=== PATIENT | female | born 1935 | race Hispanic/Latino ===

== ENCOUNTER 2019-08-12 17:06 | Emergency (ER) | payer MEDICARE ==
[~2019-08-12] VITALS: Ht 157.5 cm; Wt 69.9 kg
[~2019-08-12 17:06] MED LIST: ACETAMINOPHEN500 MG PO; ALBUTEROL0.63 MG/3; APRESOLINE50 MG PO; CELEXA10 MG PO; COLACE100 MG PO; FOSAMAX70 MG PO; FUROSEMIDE40 MG PO; GABAPENTIN300 MG PO; GLYBURIDE PO; GUAIFENESI100 MG/5 M PO; HUMALOG KWIK PEN; KCL PO; KEFLEX500 MG PO; LANTUS 3ML100 UNITS/ SC; LEVEMIR100 UNIT/1 SQ; LISINOPRIL20 MG PO; LOSARTAN-HCTZ1 EACH PO; LOVENOX40 MG/0.4 SQ; MELOXICAM7.5 MG PO; METFORMIN PO; METHYLDOPA250 MG PO; METOPROLOL TART25 MG PO; MINOXIDIL10 MG PO; MIRALAX17 GM PO; MOTRIN50 MG/1.25 PO; MULTIVITAMIN W1 EACH PO; NEXIUM40 MG; NIFEDIPINE ER30 M1 PO; PANTOPRAZOLE SO40 MG PO; PROAIR HFA INH8.5 GM; SIMVASTATIN10 MG PO; SINGULAIR10 MG PO; SPIRONOLACTONE25 MG PO; TRIAMCINOLONE A15 G1; Z FELODIPINE PO; Z.0.CARAFATE1 GM PO; Z.0.COREG3.125 MG PO; Z.0.GLIPIZIDE10 MG PO; Z.0.HUMALOG100 UNIT/; Z.0.LANTUS100 UNIT/1 SC; Z.0.LASIX40 MG PO; Z.0.LASIX80 MG PO; Z.0.LEVAQUIN500 MG PO; Z.0.LEVOTHYROXINE50 PO; Z.0.LOSARTAN POTASS5 PO; Z.0.LOVASTATIN10 MG PO; Z.0.NAPROXEN500 M1; Z.0.OMEPRAZOLE40 MG PO; Z.0.PLAVIX75 MG PO; Z.0.POTASSIUM CHLO20 PO; Z.0.PREDNISONE20 MG; Z.0.PREDNISONE20 MG PO; Z.0.QUINAPRIL HCL40 PO; Z.0.ULTRAM 50MG50 MG PO; Z.0.WARFARIN SODIUM5 PO; Z.0.ZEGERID 40 MG1 E PO; Z.1.NITROFURANTOIN10 PO; ZOFRAN ODT4 MG; ZYRTEC10 MG PO; [UNRECOGNIZED DRUG - OTHER] PO; nitropaste TOP; nystatin cream TOP
--- OUTSIDE RECORDS SUMMARY | 2019-08-12 17:10 | XMS REPORT ---
Author Author [facility] Address Unknown Phone Unavailable Care Team Providers Care Rope Rider Name Role Phone Unavailable Unavailable Payers Payer Name Policy Type Policy Number Effective Date Expiration Date Problems This patient has no known problems. Allergies, Adverse Reactions, Alerts Allergy Name Allergy Type Status Severity Reaction(s) Onset Date Inactive Date Treating Clinician Comments Penicillins DA Active SV 2019-04-01 00:00:00 iodine DA Active SV 2019-04-01 00:00:00 codeine DA Active U 2019-04-01 00:00:00 Penicillins DA Active SV 2017-07-27 00:00:00 iodine DA Active SV 2017-07-27 00:00:00 codeine DA Active U 2012-12-21 00:00:00 Medications This patient has no known medications. Encounters Start Date/Time End Date/Time Encounter Type Admission Type Attending [facility] Care Department Encounter ID 2019-02-28 12:27:00 2019-02-28 12:27:00 Outpatient [facility] [id number] Results Test Description Test Time Test Comments Text Results Atomic Results Result Comments ELECTROLYTES PROFILE 2019-04-01 15:24:00 SODIUM (test code=NA) 144 mmol/L 136-145 POTASSIUM (test code=K) 4.5 mmol/L 3.5-5.1 CHLORIDE (test code=CL) 115.0 mmol/L 98-107 CARBON DIOXIDE (test code=CO2) 18.0 mmol/L 21-32 ANION GAP (test code=GAP) 15.5 10-20 CBC W/AUTO [id number] 14:48:00* Test Item Value Reference Range Comments WHITE BLOOD CELL (test code=WBC) 7.3 K/mm3 4.5-12.5 RED BLOOD CELL (test code=RBC) 3.63 mill/mm3 3.7-5.2 HEMOGLOBIN (test code=HGB) 11.5 gram/dL 11.5-15.5 HEMATOCRIT (test code=HCT) 34.8 % 36.0-46.0 MEAN CELL VOLUME (test code=MCV) 95.9 fL 80-98 MEAN CELL HGB (test code=MCH) 31.7 picogram 27.0-33.0 MEAN CELL HGB CONCETRATION (test code=MCHC) 33.0 gram/dL 33.0-36.0 RED CELL DISTRIBUTION WIDTH (test code=RDW) 16.2 % 11.6-16.2 RED CELL DISTRIBUTION WIDTH SD (test code=RDW-SD) 57.6 fL 37.0-51.0 PLATELET COUNT (test code=PLT) 142 K/mm3 150-450 MEAN PLATELET VOLUME (test code=MPV) 10.0 fL 6.7-11.0 NEUTROPHIL % (test code=NT%) 70.8 % 39.0-69.0 IMMATURE GRANULOCYTE % (test code=IG%) 0.3 % 0.0-5.0 LYMPHOCYTE % (test code=LY%) 14.9 % 25.0-55.0 MONOCYTE % (test code=MO%) 6.8 % 0.0-10.0 EOSINOPHIL % (test code=EO%) 6.7 % 0.0-5.0 BASOPHIL % (test code=BA%) 0.5 % 0.0-1.0 NUCLEATED RBC % (test code=NRBC%) 0.0 % 0-0 NEUTROPHIL # (test code=NT#) 5.17 K/mm3 1.8-7.7 IMMATURE GRANULOCYTE # (test code=IG#) 0.02 x10 3/uL 0-0.03 LYMPHOCYTE # (test code=LY#) 1.09 K/mm3 1.0-5.0 MONOCYTE # (test code=MO#) 0.50 K/mm3 0-0.8 EOSINOPHIL # (test code=EO#) 0.49 K/mm3 0.0-0.5 BASOPHIL # (test code=BA#) 0.04 K/mm3 0.0-0.2 NUCLEATED RBC # (test code=NRBC#) 0.00 K/mm3 0.0-0.1 MANUAL DIFF REQUIRED (test code=MDIFF) NO CBC W/AUTO [id number] 14:41:00* Test Item Value Reference Range Comments WHITE BLOOD CELL (test code=WBC) K/mm3 4.5-12.5 RED BLOOD CELL (test code=RBC) mill/mm3 3.7-5.2 HEMOGLOBIN (test code=HGB) 11.5 gram/dL 11.5-15.5 HEMATOCRIT (test code=HCT) % 36.0-46.0 MEAN CELL VOLUME (test code=MCV) fL 80-98 MEAN CELL HGB (test code=MCH) picogram 27.0-33.0 MEAN CELL HGB CONCETRATION (test code=MCHC) gram/dL 33.0-36.0 RED CELL DISTRIBUTION WIDTH (test code=RDW) % 11.6-16.2 RED CELL DISTRIBUTION WIDTH SD (test code=RDW-SD) fL 37.0-51.0 PLATELET COUNT (test code=PLT) K/mm3 150-450 MEAN PLATELET VOLUME (test code=MPV) fL 6.7-11.0 NEUTROPHIL % (test code=NT%) % 39.0-69.0 IMMATURE GRANULOCYTE % (test code=IG%) % 0.0-5.0 LYMPHOCYTE % (test code=LY%) % 25.0-55.0 MONOCYTE % (test code=MO%) % 0.0-10.0 EOSINOPHIL % (test code=EO%) % 0.0-5.0 BASOPHIL % (test code=BA%) % 0.0-1.0 NEUTROPHIL # (test code=NT#) K/mm3 1.8-7.7 LYMPHOCYTE # (test code=LY#) K/mm3 1.0-5.0 MONOCYTE # (test code=MO#) K/mm3 0-0.8 EOSINOPHIL # (test code=EO#) K/mm3 0.0-0.5 BASOPHIL # (test code=BA#) K/mm3 0.0-0.2
[2019-08-12 17:52] LABS: BASOPHILS % 0.6 % (0.0-1.0); EOSINOPHILS # (AUTO) 0.6 (0.0-0.4); EOSINOPHILS % 9.7 % (0.0-6.0); HEMOGLOBIN 9.6 g/dL (12.0-16.0); LYMPHOCYTES # (AUTO) 1.4 (1.0-3.2); LYMPHOCYTES % 22.4 % (18.0-39.1); MEAN CORPUSCULAR HEMOGLOBIN 33.6 pg (28-32); MEAN CORPUSCULAR VOLUME 104.9 fL (81-99); MONOCYTES # (AUTO) 0.5 (0.2-0.8); MONOCYTES % 7.7 % (4.4-11.3); NEUTROPHILS # (AUTO) 3.7 (2.1-6.9); NEUTROPHILS % 59.1 % (38.7-80.0); PLATELET COUNT 153 x10e3/uL (140-360); RED BLOOD COUNT 2.86 x10e6/uL (3.6-5.1); RED CELL DISTRIBUTION WIDTH 13.2 % (11.7-14.4)
[2019-08-12 18:06] LABS: ALBUMIN 3.4 g/dL (3.5-5.0); ALBUMIN/GLOBULIN RATIO 0.9 (0.8-2.0); ANION GAP 13.8 mmol/L (8-16); CALCIUM 8.7 mg/dL (8.4-10.2); CREATININE, SERUM 2.54 mg/dL (0.57-1.11); POTASSIUM 4.8 mmol/L (3.5-5.1)
== END 2019-08-12 20:35 | disposition home or self-care (01) ==
LOC: ER 17:06
DX: D64.9 Anemia, unspecified (principal)
CPT/HCPCS: 36415; 80053; 85025; 93005; 99283

== ENCOUNTER 2019-12-04 21:43 | Emergency (ER) | payer MEDICARE ==
[~2019-12-04] VITALS: Ht 157.5 cm; Wt 69.9 kg
[2019-12-04] MEDS ORDERED: MORPHINE SULFATE INJ 4 MG/ML INJ 1ML IV STA (22:33)
[2019-12-04] MEDS ORDERED: ONDANSETRON HCL INJ 2MG/ML 2ML 2 MG/ML VIAL IV STA (22:33)
[2019-12-04] MEDS ORDERED: SODIUM CHLORIDE 0.9% 1000ML 1,000 ML IV STA (22:33)
[2019-12-04 23:00] LABS: BASOPHILS % 0.5 % (0.0-1.0); EOSINOPHILS # (AUTO) 0.4 (0.0-0.4); EOSINOPHILS % 5.2 % (0.0-6.0); HEMATOCRIT 27.9 % (34.2-44.1); HEMOGLOBIN 8.7 g/dL (12.0-16.0); LYMPHOCYTES # (AUTO) 0.9 (1.0-3.2); LYMPHOCYTES % 10.2 % (18.0-39.1); MEAN CORPUSCULAR HEMOGLOBIN 30.3 pg (28-32); MEAN CORPUSCULAR HGB CONC 31.2 g/dL (31-35); MEAN CORPUSCULAR VOLUME 97.2 fL (81-99); MONOCYTES # (AUTO) 0.7 (0.2-0.8); MONOCYTES % 7.7 % (4.4-11.3); NEUTROPHILS # (AUTO) 6.4 (2.1-6.9); NEUTROPHILS % 76.2 % (38.7-80.0); PLATELET COUNT 154 x10e3/uL (140-360); RED BLOOD COUNT 2.87 x10e6/uL (3.6-5.1)
[2019-12-04 23:19] LABS: ALANINE AMINOTRANSFERASE 17 IU/L (0-55); ALBUMIN 2.7 g/dL (3.5-5.0); ALBUMIN/GLOBULIN RATIO 0.8 (0.8-2.0); ALKALINE PHOSPHATASE 99 IU/L (40-150); ANION GAP 16.4 mmol/L (8-16); BLOOD UREA NITROGEN 54 mg/dL (7-26); BUN/CREATININE RATIO 16 (6-25); CALCIUM 8.7 mg/dL (8.4-10.2); CARBON DIOXIDE 23 mmol/L (22-29); CHLORIDE 100 mmol/L (98-107); CREATININE, SERUM 3.31 mg/dL (0.57-1.11); EST GLOMERULAR FILTRATION RATE 13 ML/MIN (60-); GLUCOSE 123 mg/dL (74-118); POTASSIUM 5.4 mmol/L (3.5-5.1); SODIUM 134 mmol/L (136-145)
[2019-12-04 23:32] LABS: LIPASE < 4 U/L (8-78)
--- NOTE | 2019-12-05 01:02 | Diagnostic Imaging Report ---
EXAM: CT Abdomen and Pelvis WITHOUT contrast INDICATION: Abdominal pain, nausea, vomiting COMPARISON: None. TECHNIQUE: Abdomen and pelvis were scanned utilizing a multidetector helical scanner from the lung base to the pubic symphysis without administration of IV contrast. Absence of intravenous contrast decreases sensitivity for detection of focal lesions and vascular pathology. Coronal and sagittal reformations were obtained. Routine protocol was performed. IV CONTRAST: None ORAL CONTRAST: None COMPLICATIONS: None RADIATION DOSE: Total DLP: 506 mGy*cm Estimated effective dose: (DLP x 0.015 x size factor) mSv CTDIvol has been reviewed. It is below the limits set by the Radiation Protocol Committee (RPC). Dose modulation, iterative reconstruction, and/or weight based adjustment of the mA/kV was utilized to reduce the radiation dose to as low as reasonably achievable. FINDINGS: LINES and TUBES: None. LOWER THORAX: Bibasilar atelectasis. Trace right pleural effusion. HEPATOBILIARY: No focal hepatic lesions. No biliary ductal dilation. GALLBLADDER: Absent SPLEEN: No splenomegaly. PANCREAS: No focal masses or ductal dilatation. ADRENALS: No adrenal nodules KIDNEYS/URETERS: Renal parenchymal atrophy. Mild bilateral perinephric fat stranding. No hydronephrosis. No cystic or solid mass lesions. No stones. GI TRACT: Loops of distended small bowel herniates through multiple ventral abdominal hernias with fecal is aeration of small bowel contents in the upper abdominal ventral hernia and left lower quadrant colostomies parastomal hernia. Surgical changes of sigmoidectomy. Intact rectal stump. Distal descending left lower abdominal percutaneous colostomy . No evidence of appendicitis. Hyperdense intraluminal contents within the rectal stump. PELVIC ORGANS/BLADDER: Hysterectomy. No adnexal masses. Urinary bladder under distended. LYMPH NODES: No lymphadenopathy. VESSELS: Arterial calcifications. PERITONEUM / RETROPERITONEUM: Edema in the mesentery of small bowel loops which are herniated through an ventral abdominal wall/peritoneal defects. No free air. Trace free fluid. BONES: Degenerative changes. Osseous demineralization. SOFT TISSUES: Multiple fat and bowel containing ventral abdominal hernias and a left lower abdominal parastomal hernia. Small bowel loops are distended with intraluminal semisolid contents. Simultaneous edema in the ventral abdomen. IMPRESSION: Multiple ventral abdominal hernias with herniated loops of dilated small bowel. With findings suggestive of small bowel obstruction due to strangulation within a ventral abdominal hernia, although stool within the colon distal small intestine colon argues against high-grade obstruction. Evaluation of small bowel viability is limited due to lack of IV contrast, no pneumatosis. Bibasilar opacities can be due to atelectasis or pneumonia/aspiration. Signed by: Ihsan Card DO on 12/05/2019 12:59 AM
--- NOTE | 2019-12-05 01:28 | Emergency Department Note ---
History of Present Illnes History of Present Illness Chief Complaint: Abdominal Complaints History of Present Illness This is a 84 year old female intractable n/v and decreased output from colostomy . Prior surgical h/o of surgical resection in 2017 at [facility] by Dr Helen Philip. Historian: Patient, Family Member Onset (how long ago): day(s) (2) Location: generalized abdomen Radiation: Reports abdomen Severity: moderate Onset quality: gradual Duration (how long): day(s) (2) Timing of current episode: constant Progression: worsening Chronicity: new Context: Reports recent illness Exacerbating factors: eating Associated symptoms: Reports nausea/vomiting, Reports weakness; Denies fever/chills Treatments prior to arrival: none Past Medical/Family History Physician Review I have reviewed the patient's past medical and family history. Any updates have been documented here. Past Medical History Recent Fever: No Clinical Suspicion of Infectio: No New/Unexplained Change in Ment: No Past Medical History: Hypertension, Diabetes, COPD, CHF, Hypothyroidism, UTI's, Anemia, GERD, Hyperlipedemia, Chronic Kidney Disease, Osteoarthritis Other Medical History: RESP DISEASE; HEART DISEASE; CHF ANEMIA RHEUMATOID ARTHRITIS NEUROPATHY Past Surgical History: Colon Resection Other Surgery: COLOSTOMY Social History Smoking Cessation: Never Smoker Counseling Performed: No Alcohol Use: None Any Illegal Drug Use: No TB Exposure/Symptoms: No Physically hurt or threatened: No Other Last Tetanus: 2013 Is patient up to date on immun: Yes Last Flu: UTD Last Pneumovax: UTD Review of Systems Review of Systems Constitutional: Reports weakness EENTM: Reports no symptoms Cardiovascular: Reports no symptoms Respiratory: Reports no symptoms Gastrointestinal: Reports abdominal pain, Reports nausea, Reports vomiting Genitourinary: Reports no symptoms Musculoskeletal: Reports no symptoms Integumentary: Reports no symptoms Neurological: Reports no symptoms Psychological: Reports no symptoms Endocrine: Reports no symptoms Hematological/Lymphatic: Reports no symptoms Physical Exam Related Data Allergies: Coded Allergies: Penicillins (Verified Allergy, Mild, 05/23/17) iodine (Verified Allergy, Unknown, 05/23/17) Triage Vital Signs Vital Signs Date Time Temp Pulse Resp B/P (MAP) Pulse Ox O2 Delivery O2 Flow Rate FiO2 12/04/19 22:33 98.7 60 20 151/63 96 Physical Exam CONSTITUTIONAL Constitutional: Present morbidly obese, Present ill appearing HENT HENT: Present normocephalic, Present atraumatic, Present oropharynx clear/moist, Present nose normal HENT L/R: Present left ext ear normal, Present right ext ear normal EYES Eyes: Reports PERRL, Reports conjunctivae normal NECK Neck: Present ROM normal PULMONARY Pulmonary: Present effort normal, Present breath sounds normal CARDIOVASCULAR Cardiovascular: Present regular rhythm, Present heart sounds normal, Present capillary refill normal, Present normal rate GASTROINTESTINAL Abdominal: Present soft, Present distension GENITOURINARY Genitourinary: Present exam deferred SKIN Skin: Present warm, Present dry MUSCULOSKELETAL Musculoskeletal: Present ROM normal NEUROLOGICAL Neurological: Present alert, Present oriented x 3, Present no gross motor or sensory deficits PSYCHOLOGICAL Psychological: Present mood/affect normal, Present judgement normal Results Laboratory Result Diagram: 12/04/19223412/04/192234 Laboratory Laboratory Tests Test 12/04/19 22:35 White Blood Count 8.45 x10e3/uL (4.8-10.8) Red Blood Count 2.87 x10e6/uL (3.6-5.1) Hemoglobin 8.7 g/dL (12.0-16.0) Hematocrit 27.9 % (34.2-44.1) Mean Corpuscular Volume 97.2 fL (81-99) Mean Corpuscular Hemoglobin 30.3 pg (28-32) Mean Corpuscular Hemoglobin Concent 31.2 g/dL (31-35) Red Cell Distribution Width 15.0 % (11.7-14.4) Platelet Count 154 x10e3/uL (140-360) Neutrophils (%) (Auto) 76.2 % (38.7-80.0) Lymphocytes (%) (Auto) 10.2 % (18.0-39.1) Monocytes (%) (Auto) 7.7 % (4.4-11.3) Eosinophils (%) (Auto) 5.2 % (0.0-6.0) Basophils (%) (Auto) 0.5 % (0.0-1.0) Neutrophils # (Auto) 6.4 (2.1-6.9) Lymphocytes # (Auto) 0.9 (1.0-3.2) Monocytes # (Auto) 0.7 (0.2-0.8) Eosinophils # (Auto) 0.4 (0.0-0.4) Basophils # (Auto) 0.0 (0.0-0.1) Absolute Immature Granulocyte (auto 0.02 x10e3/uL (0-0.1) Sodium Level 134 mmol/L (136-145) Potassium Level 5.4 mmol/L (3.5-5.1) Chloride Level 100 mmol/L (98-107) Carbon Dioxide Level 23 mmol/L (22-29) Anion Gap 16.4 mmol/L (8-16) Blood Urea Nitrogen 54 mg/dL (7-26) Creatinine 3.31 mg/dL (0.57-1.11) Estimat Glomerular Filtration Rate 13 ML/MIN (60-) BUN/Creatinine Ratio 16 (6-25) Glucose Level 123 mg/dL (74-118) Calcium Level 8.7 mg/dL (8.4-10.2) Total Bilirubin 0.5 mg/dL (0.2-1.2) Aspartate Amino Transf (AST/SGOT) 27 IU/L (5-34) Alanine Aminotransferase (ALT/SGPT) 17 IU/L (0-55) Alkaline Phosphatase 99 IU/L (40-150) Total Protein 6.1 g/dL (6.5-8.1) Albumin 2.7 g/dL (3.5-5.0) Globulin 3.4 g/dL (2.3-3.5) Albumin/Globulin Ratio 0.8 (0.8-2.0) Lipase < 4 U/L (8-78) Lab results reviewed: Yes Imaging Imaging results reviewed: Yes Impressions [place] [address] Patient Name: JAMES SMITH MR #: [id number] : 1935 Age/Sex: 84/F Req #: [id number] Adm Physician: Ordered by: NATHANIEL DICKINSON DO Report #: [id number] Location: ER Room/Bed: Procedure: [id number] CT/CT ABDOMEN/PELVIS WO Exam Date: 12/04/19 Exam Time: 2300 REPORT STATUS: Signed EXAM: CT Abdomen and Pelvis WITHOUT contrast INDICATION: Abdominal pain, nausea, vomiting COMPARISON: None. TECHNIQUE: Abdomen and pelvis were scanned utilizing a multidetector helical scanner from the lung base to the pubic symphysis without administration of IV contrast. Absence of intravenous contrast decreases sensitivity for detection of focal lesions and vascular pathology. Coronal and sagittal reformations were obtained. Routine protocol was performed. IV CONTRAST: None ORAL CONTRAST: None COMPLICATIONS: None RADIATION DOSE: Total DLP: 506 mGy*cm Estimated effective dose: (DLP x 0.015 x size factor) mSv CTDIvol has been reviewed. It is below the limits set by the Radiation Protocol Committee (RPC). Dose modulation, iterative reconstruction, and/or weight based adjustment of the mA/kV was utilized to reduce the radiation dose to as low as reasonably achievable. FINDINGS: LINES and TUBES: None. LOWER THORAX: Bibasilar atelectasis. Trace right pleural effusion. HEPATOBILIARY: No focal hepatic lesions. No biliary ductal dilation. GALLBLADDER: Absent SPLEEN: No splenomegaly. PANCREAS: No focal masses or ductal dilatation. ADRENALS: No adrenal nodules KIDNEYS/URETERS: Renal parenchymal atrophy. Mild bilateral perinephric fat stranding. No hydronephrosis. No cystic or solid mass lesions. No stones. GI TRACT: Loops of distended small bowel herniates through multiple ventral abdominal hernias with fecal is aeration of small bowel contents in the upper abdominal ventral hernia and left lower quadrant colostomies parastomal hernia. Surgical changes of sigmoidectomy. Intact rectal stump. Distal descending left lower abdominal percutaneous colostomy . No evidence of appendicitis. Hyperdense intraluminal contents within the rectal stump. PELVIC ORGANS/BLADDER: Hysterectomy. No adnexal masses. Urinary bladder under distended. LYMPH NODES: No lymphadenopathy. VESSELS: Arterial calcifications. PERITONEUM / RETROPERITONEUM: Edema in the mesentery of small bowel loops which are herniated through an ventral abdominal wall/peritoneal defects. No free air. Trace free fluid. BONES: Degenerative changes. Osseous demineralization. SOFT TISSUES: Multiple fat and bowel containing ventral abdominal hernias and a left lower abdominal parastomal hernia. Small bowel loops are distended with intraluminal semisolid contents. Simultaneous edema in the ventral abdomen. IMPRESSION: Multiple ventral abdominal hernias with herniated loops of dilated small bowel. With findings suggestive of small bowel obstruction due to strangulation within a ventral abdominal hernia, although stool within the colon distal small intestine colon argues against high-grade obstruction. Evaluation of small bowel viability is limited due to lack of IV contrast, no pneumatosis. Bibasilar opacities can be due to atelectasis or pneumonia/aspiration. Signed by: Ihsan Card DO on 12/05/2019 12:59 AM Dictated By: IHSAN CARD DO Transcribed By: FITO on 12/[birth year]/1958 COPY TO: NATHANIEL DICKINSON DO~ Procedures 12 Lead ECG Interpretation ECG Interpretation : ECG: ECG 1 Nursing Assoc: Interpreted by ED physician Date: Dec 05, 2019 Time: 03:05 Prior ECG tracings: reviewed Rhythm: sinus rhythm Rate: normal BPM: 59 QRS axis: normal ST segments normal: Yes T waves normal: Yes Pacin% capture Clinical Impression: normal ECG Critical Care Time Total Critical Care Time (min): 31 Critcal care necessary due to: shock Critcal care time spent by me: develop tx plan w patient/surrogate, discussion w consultants, evaluation patient response to tx, examination of patient, obtaining hx from patient/surrogate, order/perform tx or interventions, order/review laboratory studies, order/review radiographic studies, re- evaluation of patient condition, review of old charts Assessment & Plan Medical Decision Making MDM 84 yof with abdominal pain. CBC, CMP, UA and CTS ordered to r/o appendicitis, diverticulitis, UTI, kidney stone, perforated viscus, obstruction, ischemia, and biliary pathology. CTS confirms obstruction secondary to strangulation through ventral hernia. No capacity at [facility], plan to transfer patient for surgical evaluation . Patient with non-surgical abdomen. Patient to be transferred to [facility] to the service of Dr Wolfe and Dr Zarate Assessment & Plan Final Impression: (1) Small bowel obstruction (2) Renal failure (3) Hyperkalemia (4) Anemia Depart Disposition: TRANS TO OTHER [facility] Last Vital Signs Date Time Temp Pulse Resp B/P (MAP) Pulse Ox O2 Delivery O2 Flow Rate FiO2 12/05/19 00:42 54 18 160/59 100 12/04/19 22:33 98.7 Home Meds Active Scripts Cephalexin Monohydrate (KEFLEX) 500 Mg Capsule, 500 MG PO BID, #20 Prov:RUIZ GAO MD 05/25/17 Reported Medications Ondansetron (ZOFRAN ODT) 4 Mg Tab.rapdis, 4 MG Q6H, TAB 05/23/17 Furosemide (FUROSEMIDE) 40 Mg Tablet, 20 MG PO BID, #30 TAB 05/23/17 Nifedipine (NIFEDIPINE ER) 30 Mg Tab.er.24, 60 MG PO BID 05/23/17 Esomeprazole Magnesium (NEXIUM) 40 Mg Capsule. [facility] NEXIUM PER [facility] 05/23/17 Albuterol Sulfate (ALBUTEROL SULFATE) 0.63 Mg/3 Ml Vial.neb 05/23/17 Triamcinolone Acet (TRIAMCINOLONE ACETONIDE) 15 Gm Cr 05/23/17 Albuterol Sulf* (PROAIR HFA INHALER*) 8.5 Gm Inh 05/23/17 Insulin Detemir (LEVEMIR) 100 Unit/1 Ml Vial, 10 UNITS SQ BID 05/23/17 Docusate Sodium (COLACE) 100 Mg Cap, MG PO BID 05/13/13 Simvastatin (SIMVASTATIN) 10 Mg Tablet, 20 MG PO HS 05/13/13 Montelukast Sodium (SINGULAIR) 10 Mg Tablet, MG PO HS 05/13/13 [nystatin cream] No Conflict Check, [id number] UNITS TOP BID 05/13/13 Multivitamins/Minerals* (MULTIVITAMIN W/MINERALS*) 1 Each Tab, TAB PO DAILY 05/13/13 Gabapentin (GABAPENTIN) 300 Mg Capsule, 600 MG PO HS 05/13/13 Alendronate Sodium (FOSAMAX) 70 Mg Tablet, MG PO monday05/13/13 Citalopram Hydrobromide (CELEXA) 10 Mg Tablet, 20 MG PO DAILY 05/13/13 Levothyroxine Sodium (Levothyroxine Sodium) 50 Mcg Tablet, 50 MCG PO DAILY 09/01/11 Medications in the ED Sodium Chloride 1,000 ml @ 0 mls/hr Q0M STAT IV Last administered on 12/05/19at 00:41; Admin Dose 999 MLS/HR; Start 6/17/20 at 22:33; Stop 12/04/19 at 22:36; Status DC Morphine Sulfate 4 mg ONCE STAT IV Last administered on 12/05/19at 00:41; Admin Dose 4 MG; Start 12/04/19 at 22:33; Stop 12/04/19 at 22:40; Status DC Ondansetron HCl 4 mg ONCE STAT IV Last administered on 12/05/19at 00:42; Admin Dose 4 MG; Start 12/04/19 at 22:33; Stop 12/04/19 at 22:40; Status DC Ciprofloxacin Lactate 200 ml @ 200 mls/hr ONCE STAT IV Last administered on 12/05/19at 02:42; Admin Dose 200 MLS/HR; Start 12/05/19 at 01:39; Stop 12/05/19 at 02:38; Status DC Furosemide 80 mg ONCE ONCE IV ; Start 12/05/19 at 03:00; Stop 12/05/19 at 03:16; Status DC Albuterol Sulfate 15 ml NOW STAT NEB ; Start 12/05/19 at 02:55; Stop 12/05/19 at 03:16; Status DC Dextrose 50 ml NOW STAT IV ; Start 12/05/19 at 02:55; Stop 12/05/19 at 02:57; Status DC Insulin Human Regular 10 unit ONCE STAT IV ; Start 12/05/19 at 02:55; Stop 12/05/19 at 03:16; Status DC NATHANIEL DICKINSON DO Dec 05, 2019 01:28
[2019-12-05] MEDS ORDERED: CIPROFLOXACIN 400 MG/D5W 200ML 200 ML IV STA (01:39)
[2019-12-05] MEDS ORDERED: ALBUTEROL SULF 0.083% NEB SOLN 3 ML NEB NEB STA (02:55)
[2019-12-05] MEDS ORDERED: INSULIN REGULAR, HUMAN 100 UNIT/1 ML 3ML VIAL IV STA (02:55)
[2019-12-05] MEDS ORDERED: DEXTROSE 50% SYRINGE 50 ML IV STA (02:55)
[2019-12-05] MEDS ORDERED: FUROSEMIDE INJ 10 MG/ML 4 ML VIAL IV ONE (03:00)
[2019-12-05 03:44] LABS: CLARITY,URINE CLOUDY (CLEAR); COLOR,URINE YELLOW (YELLOW)
[2019-12-05 03:45] LABS: BILIRUBIN,URINE NEGATIVE (NEGATIVE); KETONES,URINE NEGATIVE (NEGATIVE); LEUKOCYTE ESTERASE ,URINE 1+ (NEGATIVE); NITRITE,URINE NEGATIVE (NEGATIVE); PROTEIN,URINE DIPSTICK >=300 (NEGATIVE); URINE UROBILINOGEN 0.2 mg/dL (0.2 - 1)
[2019-12-05 03:50] LABS: BACTERIA,URINE MANY /HPF; EPITHELIAL CELLS,URINE FEW /LPF; RBC,URINE 0-5 /HPF (0-5); WBC,URINE (MAN) >50 /HPF (0-5)
--- NOTE | 2019-12-05 04:11 | NUR ---
[facility] called for tranport
[2019-12-05 04:21] VITALS: BP 127/59
== END 2019-12-05 05:00 | disposition other institution (70) ==
LOC: ER 21:43
DX: R10.84 Generalized abdominal pain (principal); K56.609 Unspecified intestinal obstruction, unspecified as to partial versus complete obstruction; N19 Unspecified kidney failure; E87.5 Hyperkalemia; D64.9 Anemia, unspecified; I10 Essential (primary) hypertension; E11.9 Type 2 diabetes mellitus without complications; J44.9 Chronic obstructive pulmonary disease, unspecified; I50.9 Heart failure, unspecified; Z93.3 Colostomy status
CPT/HCPCS: 36415; 74176; 80053; 81001; 82948; 83690; 85025; 93005; 94640; 99284; J1817; J1940; J2270; J2405; J7030; J7799

== ENCOUNTER 2020-07-15 15:12 | Inpatient (IN) | payer MEDICARE ==
[~2020-07-15] VITALS: Ht 157.5 cm; Wt 69.9 kg
[2020-07-15 16:03] LABS: BASOPHILS % 0.4 % (0.0-1.0); EOSINOPHILS % 0.1 % (0.0-6.0); LYMPHOCYTES # (AUTO) 0.7 (1.0-3.2); LYMPHOCYTES % 6.4 % (18.0-39.1); MEAN CORPUSCULAR HEMOGLOBIN 33.9 pg (28-32); MEAN CORPUSCULAR HGB CONC 31.3 g/dL (31-35); MEAN CORPUSCULAR VOLUME 108.3 fL (81-99); MONOCYTES # (AUTO) 0.9 (0.2-0.8); MONOCYTES % 8.9 % (4.4-11.3); NEUTROPHILS # (AUTO) 8.5 (2.1-6.9); NEUTROPHILS % 83.7 % (38.7-80.0); PLATELET COUNT 194 x10e3/uL (140-360); RED BLOOD COUNT 1.92 x10e6/uL (3.6-5.1); RED CELL DISTRIBUTION WIDTH 14.6 % (11.7-14.4)
[2020-07-15 16:04] LABS: HEMOGLOBIN 6.5 g/dL (12.0-16.0)
[2020-07-15 16:05] LABS: HEMATOCRIT 20.8 % (34.2-44.1)
[2020-07-15] MEDS ORDERED: SODIUM CHLORIDE 0.9% 250ML 250 ML IV ONE (16:15)
[2020-07-15] MEDS ORDERED: FUROSEMIDE INJ 10 MG/ML 2 ML VIAL IV PRN (16:15)
[2020-07-15 16:34] LABS: CREATINE KINASE MB 1.5 ng/mL (0-5.0)
[2020-07-15 16:35] LABS: ALBUMIN 2.7 g/dL (3.5-5.0); ALBUMIN/GLOBULIN RATIO 0.8 (0.8-2.0); ANION GAP 23.8 mmol/L (8-16); CALCIUM 7.5 mg/dL (8.4-10.2); CREATININE, SERUM 5.01 mg/dL (0.57-1.11); MAGNESIUM 2.1 MG/DL (1.3-2.1)
[2020-07-15 16:38] LABS: POTASSIUM 5.8 mmol/L (3.5-5.1)
[2020-07-15] MEDS ORDERED: HYDROCODONE/APAP 7.5MG-325MG 1 EA TAB PO ONE (17:00)
[2020-07-15] MEDS ORDERED: SODIUM BICARBONATE 8.4% INJ 50 ML SYR IV STA (17:03)
[2020-07-15] MEDS ORDERED: ALBUTEROL SULF 0.083% NEB SOLN 3 ML NEB NEB STA (17:03)
[2020-07-15] MEDS ORDERED: DEXTROSE 50% SYRINGE 50 ML IV STA (17:03)
[2020-07-15 17:08] LABS: INR 1.14; PROTHROMBIN TIME 15.4 seconds (11.9-14.5)
[2020-07-15 17:09] LABS: PARTIAL THROMBOPLASTIN TIME 38.2 seconds (23.8-35.5)
[2020-07-15] MEDS ORDERED: INSULIN REGULAR, HUMAN 100 UNIT/1 ML 3ML VIAL IV ONE (17:15)
[2020-07-15] MEDS ORDERED: SOD POLYSTYRENE SULFONATE SUSP 15 GM/60 ML BTL PO ONE (17:15)
[2020-07-15] MEDS ORDERED: CALCIUM GLUCONATE 10% INJ 4.65 MEQ in SODIUM CHLORIDE 0.9% 50ML 50 ML IV ONE (17:15)
[2020-07-15] MEDS ORDERED: FUROSEMIDE INJ 10 MG/ML 4 ML VIAL IV ONE (17:45)
[2020-07-15] MEDS ORDERED: POLYETHYLENE GLYCOL 3350 17 GM PACK PO ONE (18:30)
[2020-07-15] MEDS ORDERED: SODIUM CHLORIDE 0.9% 250ML 250 ML ONE (20:53)
[2020-07-16] MEDS: LEVOTHYROXINE SODIUM 50 MCG TAB PO SCH ×2 (06:23→07:56)
[2020-07-16 06:31] LABS: BASOPHILS % 0.4 % (0.0-1.0); EOSINOPHILS # (AUTO) 0.1 (0.0-0.4); EOSINOPHILS % 1.3 % (0.0-6.0); HEMATOCRIT 24.6 % (34.2-44.1); HEMOGLOBIN 7.6 g/dL (12.0-16.0); LYMPHOCYTES # (AUTO) 0.7 (1.0-3.2); LYMPHOCYTES % 6.8 % (18.0-39.1); MEAN CORPUSCULAR HEMOGLOBIN 32.5 pg (28-32); MEAN CORPUSCULAR HGB CONC 30.9 g/dL (31-35); MEAN CORPUSCULAR VOLUME 105.1 fL (81-99); MONOCYTES # (AUTO) 0.9 (0.2-0.8); MONOCYTES % 8.5 % (4.4-11.3); NEUTROPHILS # (AUTO) 8.3 (2.1-6.9); NEUTROPHILS % 82.4 % (38.7-80.0); PLATELET COUNT 173 x10e3/uL (140-360); RED BLOOD COUNT 2.34 x10e6/uL (3.6-5.1); RED CELL DISTRIBUTION WIDTH 14.6 % (11.7-14.4)
[2020-07-16] MEDS: FUROSEMIDE INJ 10 MG/ML 4 ML VIAL IV SCH ×2 (06:54→17:00)
[2020-07-16 07:23] LABS: ALBUMIN 2.7 g/dL (3.5-5.0); ALBUMIN/GLOBULIN RATIO 0.7 (0.8-2.0); ANION GAP 21.7 mmol/L (8-16); CALCIUM 8.2 mg/dL (8.4-10.2); CREATININE, SERUM 5.09 mg/dL (0.57-1.11); POTASSIUM 4.7 mmol/L (3.5-5.1)
[2020-07-16 07:40] LABS: CREATINE KINASE MB 3.2 ng/mL (0-5.0)
[2020-07-16 07:46] LABS: ANISOCYTOSIS SLIGHT; MONOCYTES % (MANUAL) 2 % (3.4-9.0); RBC MORPHOLOGY COMMENT NORMAL
[2020-07-16 07:47] LABS: PLATELET ESTIMATE ADEQUATE; PLATELET MORPHOLOGY COMMENT NORMAL
[2020-07-16] MEDS: DOCUSATE SODIUM 100 MG CAP PO SCH ×2 (07:48→17:00)
[2020-07-16] MEDS: ACETAMINOPHEN 325 MG TAB PO PRN (07:57)
[2020-07-16 08:11] LABS: LYMPHOCYTES % (MANUAL) 4 % (19-48); NEUTROPHILS % (MANUAL) 94 % (40-74)
[2020-07-16 08:16] LABS: MAGNESIUM 2.2 MG/DL (1.3-2.1); PHOSPHORUS 7.8 MG/DL (2.3-4.7)
[2020-07-16 08:23] LABS: CHOL/HDL RATIO 3.1 (3.0-3.6)
[2020-07-16] MEDS ORDERED: NIFEDIPINE CR 30 MG TAB PO SCH (09:00)
[2020-07-16] MEDS ORDERED: HEPARIN SOD (PORCINE) 1000 UNIT/ML SDV ONE (09:37)
[2020-07-16] MEDS ORDERED: LIDOCAINE HCL 1% LOCAL INJ 20 ML VIAL ONE (09:46)
[2020-07-16] MEDS ORDERED: SODIUM CHLORIDE 0.9% 250ML 250 ML ONE (10:03)
[2020-07-16] MEDS ORDERED: CEFAZOLIN SOD 1 GM/NS 50ML 50 ML IV ONE (10:44)
[2020-07-16] MEDS ORDERED: MIDAZOLAM HCL 2 MG/2 ML VIAL ONE (11:10)
[2020-07-16] MEDS ORDERED: FENTANYL CITRATE/PF 100MCG/2 ML INJ ONE (11:10)
[2020-07-16] MEDS ORDERED: HEPARIN SOD (PORCINE) 1000 UNIT/ML SDV IV PRN (11:45)
[2020-07-16] MEDS ORDERED: MANNITOL 25% 12.5GM/50 ML VIAL IV PRN (11:45)
[2020-07-16] MEDS ORDERED: SODIUM CHLORIDE 0.9% 1000ML 2,000 ML IV PRN (11:45)
[2020-07-16] MEDS ORDERED: AZITHROMYCIN 250 MG TAB PO ONE (12:45)
[2020-07-16 14:28] LABS: % IRON SATURATION 32 % (15-50); IRON 64 ug/dL (50-170); TOTAL IRON BINDING CAPACITY 202 ug/dL (261-478); TRANSFERRIN 144 mg/dL (180-382)
[2020-07-16 14:55] LABS: FREE THYROXINE INDEX 1.7036 (1.4-3.8); THYROID STIMULATING HORMONE 3.841 uIU/mL (0.350-4.940)
[2020-07-16 15:26] LABS: CREATINE KINASE MB 3.6 ng/mL (0-5.0)
[2020-07-16 20:00] VITALS: BP 162/60
[2020-07-16] MEDS: HEPARIN SOD (PORCINE) 5,000 UNIT/ML VIAL SC SCH (20:28)
[2020-07-16] MEDS: MONTELUKAST SODIUM 10 MG TAB PO SCH (20:28)
[2020-07-16 20:46] VITALS: BP 162/60
[2020-07-17] VITALS (8 sets, daily range): BP systolic 130–190; BP diastolic 49–58
[2020-07-17] MEDS: NIFEDIPINE CR 30 MG TAB PO SCH (00:20)
[2020-07-17] MEDS: HEPARIN SOD (PORCINE) 5,000 UNIT/ML VIAL SC SCH ×2 (00:20→10:00)
[2020-07-17] MEDS: MONTELUKAST SODIUM 10 MG TAB PO SCH (00:20)
[2020-07-17] MEDS: ACETAMINOPHEN 325 MG TAB PO PRN (01:20)
[2020-07-17] MEDS: ZOLPIDEM TARTRATE 5 MG TAB PO PRN (01:20)
[2020-07-17] MEDS: FUROSEMIDE INJ 10 MG/ML 4 ML VIAL IV SCH ×2 (04:37→17:33)
[2020-07-17 07:35] LABS: BASOPHILS % 0.5 % (0.0-1.0); EOSINOPHILS # (AUTO) 0.2 (0.0-0.4); EOSINOPHILS % 3.1 % (0.0-6.0); HEMATOCRIT 24.3 % (34.2-44.1); HEMOGLOBIN 7.7 g/dL (12.0-16.0); LYMPHOCYTES # (AUTO) 0.7 (1.0-3.2); LYMPHOCYTES % 8.4 % (18.0-39.1); MEAN CORPUSCULAR HEMOGLOBIN 32.9 pg (28-32); MEAN CORPUSCULAR HGB CONC 31.7 g/dL (31-35); MEAN CORPUSCULAR VOLUME 103.8 fL (81-99); MONOCYTES # (AUTO) 0.8 (0.2-0.8); MONOCYTES % 10.4 % (4.4-11.3); NEUTROPHILS % 77.3 % (38.7-80.0); PLATELET COUNT 198 x10e3/uL (140-360); RED BLOOD COUNT 2.34 x10e6/uL (3.6-5.1); RED CELL DISTRIBUTION WIDTH 14.8 % (11.7-14.4)
[2020-07-17 08:19] LABS: ANION GAP 14.5 mmol/L (8-16); CALCIUM 8.2 mg/dL (8.4-10.2); CREATININE, SERUM 3.63 mg/dL (0.57-1.11)
[2020-07-17 08:53] LABS: POTASSIUM 3.5 mmol/L (3.5-5.1)
[2020-07-17] MEDS ORDERED: NIFEDIPINE CR 30 MG TAB PO SCH (09:00)
[2020-07-17] MEDS: DOCUSATE SODIUM 100 MG CAP PO SCH ×2 (09:00→17:24)
[2020-07-17] MEDS: AZITHROMYCIN 250 MG TAB PO SCH (10:00)
[2020-07-17] MEDS: HYDROCODONE/APAP 5MG-325MG TAB PO PRN (10:59)
[2020-07-17 11:04] LABS: % IRON SATURATION 16 % (15-50); IRON 29 ug/dL (50-170); TOTAL IRON BINDING CAPACITY 181 ug/dL (261-478); TRANSFERRIN 129 mg/dL (180-382)
[2020-07-17] MEDS ORDERED: SODIUM CHLORIDE 0.9% 250ML 250 ML ONE (11:52)
[2020-07-17] MEDS: IRON SUCROSE 100 MG in SODIUM CHLORIDE 0.9% 100 ML 100 ML IV SCH (12:00)
[2020-07-17] MEDS: ONDANSETRON HCL INJ 2MG/ML 2ML 2 MG/ML VIAL IV PRN (12:21)
[2020-07-17] MEDS ORDERED: EPOETIN ALFA-EPBX 10,000 UNIT/ML VIAL SC SCH (18:00)
[2020-07-18] VITALS (9 sets, daily range): BP systolic 92–168; BP diastolic 47–66
[2020-07-18] MEDS: HYDROCODONE/APAP 5MG-325MG TAB PO PRN ×2 (00:38→17:18)
[2020-07-18] MEDS: ZOLPIDEM TARTRATE 5 MG TAB PO PRN (03:00)
[2020-07-18] MEDS: FUROSEMIDE INJ 10 MG/ML 4 ML VIAL IV SCH ×2 (05:00→17:01)
[2020-07-18] MEDS: LEVOTHYROXINE SODIUM 50 MCG TAB PO SCH (05:34)
[2020-07-18 06:35] LABS: CLARITY,URINE CLEAR (CLEAR); COLOR,URINE YELLOW (YELLOW); KETONES,URINE NEGATIVE (NEGATIVE); LEUKOCYTE ESTERASE ,URINE NEGATIVE (NEGATIVE); NITRITE,URINE NEGATIVE (NEGATIVE); PROTEIN,URINE DIPSTICK >=300 (NEGATIVE); URINE UROBILINOGEN 0.2 mg/dL (0.2 - 1)
[2020-07-18 06:49] LABS: ALBUMIN 2.3 g/dL (3.5-5.0); ALBUMIN/GLOBULIN RATIO 0.6 (0.8-2.0); ANION GAP 12.6 mmol/L (8-16); CALCIUM 7.8 mg/dL (8.4-10.2); CREATININE, SERUM 1.84 mg/dL (0.57-1.11); POTASSIUM 3.6 mmol/L (3.5-5.1)
[2020-07-18 07:05] LABS: BACTERIA,URINE MODERATE /HPF; EPITHELIAL CELLS,URINE FEW /LPF; RBC,URINE 0-5 /HPF (0-5)
[2020-07-18 08:59] LABS: HEMATOCRIT 26.2 % (34.2-44.1); HEMOGLOBIN 8.4 g/dL (12.0-16.0)
[2020-07-18] MEDS: DOCUSATE SODIUM 100 MG CAP PO SCH ×2 (09:08→17:01)
[2020-07-18] MEDS: METOPROLOL TARTRATE 25 MG TAB PO SCH (09:08)
[2020-07-18] MEDS: AZITHROMYCIN 250 MG TAB PO SCH (09:09)
[2020-07-18] MEDS: NIFEDIPINE CR 30 MG TAB PO SCH ×2 (09:09→21:00)
[2020-07-18] MEDS: HEPARIN SOD (PORCINE) 5,000 UNIT/ML VIAL SC SCH (09:10)
[2020-07-18] MEDS: IRON SUCROSE 100 MG in SODIUM CHLORIDE 0.9% 100 ML 100 ML IV SCH (10:00)
[2020-07-18] MEDS: ONDANSETRON HCL INJ 2MG/ML 2ML 2 MG/ML VIAL IV PRN (17:18)
[2020-07-18] MEDS: MONTELUKAST SODIUM 10 MG TAB PO SCH (21:00)
[2020-07-19] VITALS (9 sets, daily range): BP systolic 151–177; BP diastolic 49–61
[2020-07-19] MEDS: MONTELUKAST SODIUM 10 MG TAB PO SCH ×2 (00:05→21:00)
[2020-07-19] MEDS: HEPARIN SOD (PORCINE) 5,000 UNIT/ML VIAL SC SCH ×3 (00:31→21:00)
[2020-07-19] MEDS: FUROSEMIDE INJ 10 MG/ML 4 ML VIAL IV SCH ×2 (05:56→17:18)
[2020-07-19] MEDS: NIFEDIPINE CR 30 MG TAB PO SCH ×3 (05:56→21:00)
[2020-07-19] MEDS: LEVOTHYROXINE SODIUM 50 MCG TAB PO SCH (05:56)
[2020-07-19] MEDS: METOPROLOL TARTRATE 25 MG TAB PO SCH ×3 (05:59→21:00)
[2020-07-19] MEDS: DOCUSATE SODIUM 100 MG CAP PO SCH ×2 (09:08→17:18)
[2020-07-19] MEDS: AZITHROMYCIN 250 MG TAB PO SCH (09:09)
[2020-07-19] MEDS: IRON SUCROSE 100 MG in SODIUM CHLORIDE 0.9% 100 ML 100 ML IV SCH (12:17)
[2020-07-19] MEDS: ACETAMINOPHEN 325 MG TAB PO PRN (18:10)
[2020-07-19] MEDS: HYDROCODONE/APAP 5MG-325MG TAB PO PRN (20:40)
[2020-07-20] MEDS: TRAMADOL HCL 50 MG TAB PO PRN ×2 (04:20→23:55)
[2020-07-20] MEDS: LEVOTHYROXINE SODIUM 50 MCG TAB PO SCH (04:37)
[2020-07-20 04:59] VITALS: BP 175/53
[2020-07-20] MEDS: FUROSEMIDE INJ 10 MG/ML 4 ML VIAL IV SCH ×2 (05:00→16:04)
[2020-07-20] MEDS: ONDANSETRON HCL INJ 2MG/ML 2ML 2 MG/ML VIAL IV PRN (07:15)
[2020-07-20 07:56] LABS: BASOPHILS # (AUTO) 0.1 (0.0-0.1); BASOPHILS % 0.8 % (0.0-1.0); EOSINOPHILS # (AUTO) 0.3 (0.0-0.4); EOSINOPHILS % 4.4 % (0.0-6.0); HEMATOCRIT 28.6 % (34.2-44.1); HEMOGLOBIN 8.9 g/dL (12.0-16.0); LYMPHOCYTES # (AUTO) 0.8 (1.0-3.2); LYMPHOCYTES % 11.7 % (18.0-39.1); MEAN CORPUSCULAR HEMOGLOBIN 32.2 pg (28-32); MEAN CORPUSCULAR HGB CONC 31.1 g/dL (31-35); MEAN CORPUSCULAR VOLUME 103.6 fL (81-99); MONOCYTES # (AUTO) 0.7 (0.2-0.8); MONOCYTES % 10.5 % (4.4-11.3); NEUTROPHILS # (AUTO) 4.8 (2.1-6.9); NEUTROPHILS % 72.3 % (38.7-80.0); PLATELET COUNT 182 x10e3/uL (140-360); RED BLOOD COUNT 2.76 x10e6/uL (3.6-5.1); RED CELL DISTRIBUTION WIDTH 13.7 % (11.7-14.4)
[2020-07-20] MEDS: HYDRALAZINE HCL 10 MG TAB PO SCH ×3 (08:00→21:46)
[2020-07-20 08:12] VITALS: BP 157/54
[2020-07-20 08:16] LABS: ANION GAP 15.3 mmol/L (8-16); CALCIUM 8.5 mg/dL (8.4-10.2); CREATININE, SERUM 2.52 mg/dL (0.57-1.11); POTASSIUM 3.3 mmol/L (3.5-5.1)
[2020-07-20 08:45] VITALS: BP 157/54
[2020-07-20] MEDS: DOCUSATE SODIUM 100 MG CAP PO SCH ×2 (08:53→16:04)
[2020-07-20] MEDS: NIFEDIPINE CR 30 MG TAB PO SCH ×2 (08:53→21:00)
[2020-07-20] MEDS: METOPROLOL TARTRATE 25 MG TAB PO SCH ×2 (08:53→21:00)
[2020-07-20] MEDS: AZITHROMYCIN 250 MG TAB PO SCH (08:53)
[2020-07-20] MEDS: HEPARIN SOD (PORCINE) 5,000 UNIT/ML VIAL SC SCH ×2 (08:54→21:42)
[2020-07-20] MEDS ORDERED: POTASSIUM CHLORIDE 10MEQ EA PO NR (09:00)
[2020-07-20] MEDS: IRON SUCROSE 100 MG in SODIUM CHLORIDE 0.9% 100 ML 100 ML IV SCH (11:03)
[2020-07-20] MEDS ORDERED: PROPOFOL IV EMULSION 10 MG/ML 20 ML VIAL ONE (12:57)
[2020-07-20] MEDS ORDERED: LABETALOL HCL 5 MG/ML 20ML VIAL ONE (12:57)
[2020-07-20] MEDS ORDERED: LIDOCAINE HCL 2% LOCAL INJ 5 ML SDV VIAL INJ ONE (12:57)
[2020-07-20 14:15] VITALS: BP 176/49
[2020-07-20 16:54] VITALS: BP 149/54
[2020-07-20 20:00] VITALS: BP 104/47
[2020-07-20] MEDS: HYDROCODONE/APAP 5MG-325MG TAB PO PRN (20:59)
[2020-07-20] MEDS: MONTELUKAST SODIUM 10 MG TAB PO SCH (21:45)
[2020-07-21] VITALS (14 sets, daily range): BP systolic 135–196; BP diastolic 51–111
[2020-07-21] MEDS: HYDROCODONE/APAP 5MG-325MG TAB PO PRN (03:53)
[2020-07-21] MEDS: FUROSEMIDE INJ 10 MG/ML 4 ML VIAL IV SCH ×2 (05:33→16:06)
[2020-07-21] MEDS: LEVOTHYROXINE SODIUM 50 MCG TAB PO SCH (05:33)
[2020-07-21] MEDS: HYDRALAZINE HCL 10 MG TAB PO SCH (05:33)
[2020-07-21] MEDS ORDERED: NIFEDIPINE ER30 M1 PO (06:25)
[2020-07-21] MEDS ORDERED: LASIX10 MG/ML PO (06:25)
[2020-07-21] MEDS ORDERED: HYDRALAZINE HCL25 MG PO (06:25)
[2020-07-21] MEDS ORDERED: LOPRESSOR25 MG PO (06:25)
[2020-07-21] MEDS: METOPROLOL TARTRATE 25 MG TAB PO SCH (08:24)
[2020-07-21] MEDS: SEVELAMER CARBONATE 800 MG TAB PO SCH ×3 (08:24→16:16)
[2020-07-21] MEDS: DOCUSATE SODIUM 100 MG CAP PO SCH ×2 (08:24→16:06)
[2020-07-21] MEDS: NIFEDIPINE CR 30 MG TAB PO SCH (08:25)
[2020-07-21] MEDS: AZITHROMYCIN 250 MG TAB PO SCH (08:25)
[2020-07-21] MEDS: IRON SUCROSE 100 MG in SODIUM CHLORIDE 0.9% 100 ML 100 ML IV SCH (08:41)
[2020-07-21] MEDS: HEPARIN SOD (PORCINE) 5,000 UNIT/ML VIAL SC SCH (09:00)
[2020-07-21 09:45] LABS: BASOPHILS # (AUTO) 0.1 (0.0-0.1); BASOPHILS % 0.7 % (0.0-1.0); EOSINOPHILS # (AUTO) 0.5 (0.0-0.4); EOSINOPHILS % 6.9 % (0.0-6.0); HEMATOCRIT 30.2 % (34.2-44.1); HEMOGLOBIN 9.6 g/dL (12.0-16.0); LYMPHOCYTES # (AUTO) 1.2 (1.0-3.2); LYMPHOCYTES % 16.8 % (18.0-39.1); MEAN CORPUSCULAR HEMOGLOBIN 33.3 pg (28-32); MEAN CORPUSCULAR HGB CONC 31.8 g/dL (31-35); MEAN CORPUSCULAR VOLUME 104.9 fL (81-99); MONOCYTES # (AUTO) 0.7 (0.2-0.8); MONOCYTES % 9.8 % (4.4-11.3); NEUTROPHILS # (AUTO) 4.5 (2.1-6.9); NEUTROPHILS % 65.4 % (38.7-80.0); PLATELET COUNT 183 x10e3/uL (140-360); RED BLOOD COUNT 2.88 x10e6/uL (3.6-5.1); RED CELL DISTRIBUTION WIDTH 13.3 % (11.7-14.4)
[2020-07-21 10:09] LABS: ANION GAP 13.9 mmol/L (8-16); CALCIUM 8.5 mg/dL (8.4-10.2); CREATININE, SERUM 1.58 mg/dL (0.57-1.11); POTASSIUM 3.9 mmol/L (3.5-5.1)
[2020-07-21] MEDS ORDERED: ONDANSETRON HCL 4 MG ORAL DISINTEGRATING TAB PO PRN (11:00)
[2020-07-21] MEDS ORDERED: HYDRALAZINE HCL 20 MG/ML VIAL IV ONE ×2 (11:15→16:45)
[2020-07-21] MEDS: TRAMADOL HCL 50 MG TAB PO PRN (12:21)
[2020-07-21] MEDS ORDERED: HYDRALAZINE HCL 25 MG TAB PO SCH ×2 (14:00→22:00)
== END 2020-07-21 19:50 | disposition home or self-care (01) | DRG 640 ==
LOC: ER 15:23 → ERHOLD 18:03 → MED/SURG2 07-16 15:26
PROVIDERS: ADMIT Internal Medicine; ATTEND Internal Medicine
PROC: 30233N1 Transfusion of Nonautologous Red Blood Cells into Peripheral Vein, Percutaneous Approach (ICD-10-PCS; principal; 2020-07-15)
PROC: 0JH63XZ Insertion of Tunneled Vascular Access Device into Chest Subcutaneous Tissue and Fascia, Percutaneous Approach (ICD-10-PCS; 2020-07-16)
PROC: 02H633Z Insertion of Infusion Device into Right Atrium, Percutaneous Approach (ICD-10-PCS; 2020-07-16)
PROC: B548ZZA Ultrasonography of Superior Vena Cava, Guidance (ICD-10-PCS; 2020-07-16)
PROC: 5A1D70Z Performance of Urinary Filtration, Intermittent, Less than 6 Hours Per Day (ICD-10-PCS; 2020-07-16)
PROC: 5A1D70Z Performance of Urinary Filtration, Intermittent, Less than 6 Hours Per Day (ICD-10-PCS; 2020-07-17)
PROC: 5A1D70Z Performance of Urinary Filtration, Intermittent, Less than 6 Hours Per Day (ICD-10-PCS; 2020-07-18)
PROC: 5A1D70Z Performance of Urinary Filtration, Intermittent, Less than 6 Hours Per Day (ICD-10-PCS; 2020-07-20)
PROC: 0DB68ZX Excision of Stomach, Via Natural or Artificial Opening Endoscopic, Diagnostic (ICD-10-PCS; 2020-07-20)
DX: E87.5 Hyperkalemia (principal); N18.6 End stage renal disease; J18.9 Pneumonia, unspecified organism; I13.2 Hypertensive heart and chronic kidney disease with heart failure and with stage 5 chronic kidney disease, or end stage renal disease; E87.2 Acidosis; E11.21 Type 2 diabetes mellitus with diabetic nephropathy; E11.22 Type 2 diabetes mellitus with diabetic chronic kidney disease; R91.1 Solitary pulmonary nodule; D63.1 Anemia in chronic kidney disease; Z88.0 Allergy status to penicillin; Z91.041 Radiographic dye allergy status; Z99.2 Dependence on renal dialysis; Z79.4 Long term (current) use of insulin; E03.9 Hypothyroidism, unspecified; R62.7 Adult failure to thrive; Z93.1 Gastrostomy status; Z93.3 Colostomy status; G47.33 Obstructive sleep apnea (adult) (pediatric); K20.90 Esophagitis, unspecified without bleeding; K29.70 Gastritis, unspecified, without bleeding; K44.9 Diaphragmatic hernia without obstruction or gangrene; Z68.28 Body mass index [BMI] 28.0-28.9, adult; I50.9 Heart failure, unspecified
CPT/HCPCS: 36415; 36558; 43239; 71045; 71046; 71250; 74470; 76937; 77001; 80048; 80053; 80061; 81001; 82270; 82550; 82553; 82607; 82728; 82746; 82948; 83036; 83090; 83540; 83735; 83880; 83921; 84100; 84436; 84443; 84466; 84479; 84484; 85014; 85018; 85025; 85610; 85730; 86705; 86706; 86850; 86900; 86920; 87086; 87340; 88305; 88312; 90962; 93005; 99152; 99153; 99251; 99285; C1892; J0360; J0610; J0690; J1644; J1756; J1817; J1940; J2001; J2150; J2250; J2405; J3010; J7030; J7050; J7799; P9016; U0002

== ENCOUNTER 2020-11-30 14:39 | Inpatient (IN) | payer MEDICARE ==
[~2020-11-30] VITALS: Ht 157.5 cm; Wt 69.9 kg
[~2020-11-30 14:39] MED LIST changes: +HYDRALAZINE HCL25 MG PO; +LASIX10 MG/ML PO; +LOPRESSOR25 MG PO
[2020-11-30] MEDS ORDERED: FENTANYL CITRATE/PF 100MCG/2 ML INJ IV PRN (15:15)
[2020-11-30 16:22] LABS: BASOPHILS % 0.4 % (0.0-1.0); EOSINOPHILS # (AUTO) 0.2 (0.0-0.4); EOSINOPHILS % 3.1 % (0.0-6.0); HEMATOCRIT 36.8 % (34.2-44.1); HEMOGLOBIN 11.2 g/dL (12.0-16.0); LYMPHOCYTES # (AUTO) 0.5 (1.0-3.2); LYMPHOCYTES % 7.4 % (18.0-39.1); MEAN CORPUSCULAR HEMOGLOBIN 31.4 pg (28-32); MEAN CORPUSCULAR HGB CONC 30.4 g/dL (31-35); MEAN CORPUSCULAR VOLUME 103.1 fL (81-99); MONOCYTES # (AUTO) 0.4 (0.2-0.8); MONOCYTES % 5.5 % (4.4-11.3); NEUTROPHILS # (AUTO) 5.6 (2.1-6.9); NEUTROPHILS % 83.3 % (38.7-80.0); PLATELET COUNT 139 x10e3/uL (140-360); RED BLOOD COUNT 3.57 x10e6/uL (3.6-5.1); RED CELL DISTRIBUTION WIDTH 17.4 % (11.7-14.4)
[2020-11-30 16:41] LABS: ALBUMIN 3.1 g/dL (3.5-5.0); ALBUMIN/GLOBULIN RATIO 0.8 (0.8-2.0); ANION GAP 16.8 mmol/L (8-16); CALCIUM 8.7 mg/dL (8.4-10.2); CREATININE, SERUM 3.96 mg/dL (0.57-1.11); POTASSIUM 3.8 mmol/L (3.5-5.1)
[2020-11-30] MEDS ORDERED: MORPHINE SULFATE INJ 2 MG/ML SYR IV PRN (17:30)
[2020-11-30] MEDS ORDERED: CEFEPIME 2 GM in SODIUM CHLORIDE 0.9% 100 ML IV SCH (17:45)
[2020-11-30] MEDS: MORPHINE SULFATE INJ 4 MG/ML INJ 1ML IV PRN (18:00)
[2020-11-30] MEDS: ONDANSETRON HCL INJ 2MG/ML 2ML 2 MG/ML VIAL IV PRN ×2 (18:00→22:19)
[2020-11-30] MEDS: METRONIDAZOLE 750MG/NS 150ML 150 ML IV SCH (18:00)
[2020-11-30] MEDS ORDERED: BENZOCAINE 20% SPR 60 ML CAN ONE (18:03)
[2020-11-30] MEDS ORDERED: BENZONATATE100 MG PO (18:54)
[2020-11-30] MEDS ORDERED: METOPROLOL SUCC25 MG PO (19:00)
[2020-11-30] MEDS ORDERED: OMEPRAZOLE40 MG PO (19:00)
[2020-11-30] MEDS ORDERED: FOLIC ACID0.4 MG PO (19:00)
[2020-11-30] MEDS ORDERED: LORATADINE10 MG PO (19:00)
[2020-11-30] MEDS ORDERED: CLONIDINE HCL0.1 MG PO (19:00)
[2020-11-30] MEDS ORDERED: MECLIZINE HCL12.5 MG PO (19:00)
[2020-11-30] MEDS ORDERED: SENNA8.6 MG PO (19:05)
[2020-11-30] MEDS ORDERED: FLOMAX0.4 MG PO (19:05)
[2020-11-30] MEDS ORDERED: ULTRAM50 MG PO (19:05)
[2020-11-30] MEDS ORDERED: SUCRALFATE1 GM PO (19:05)
[2020-11-30] MEDS ORDERED: OXYBUTYNIN CHLOR5 MG PO (19:05)
[2020-11-30 20:24] VITALS: BP 151/61
[2020-11-30 20:54] VITALS: BP 151/61
[2020-11-30 21:00] VITALS: BP 151/61
[2020-12-01] VITALS (8 sets, daily range): BP systolic 108–142; BP diastolic 44–88
[2020-12-01] MEDS: SODIUM CHLORIDE 0.9% 250ML IRRIG IR SCH ×5 (04:00→21:29)
[2020-12-01 05:55] LABS: BASOPHILS % 0.5 % (0.0-1.0); EOSINOPHILS # (AUTO) 0.1 (0.0-0.4); EOSINOPHILS % 1.1 % (0.0-6.0); HEMATOCRIT 37.2 % (34.2-44.1); HEMOGLOBIN 11.5 g/dL (12.0-16.0); LYMPHOCYTES # (AUTO) 0.3 (1.0-3.2); LYMPHOCYTES % 3.6 % (18.0-39.1); MEAN CORPUSCULAR HGB CONC 30.9 g/dL (31-35); MEAN CORPUSCULAR VOLUME 103.6 fL (81-99); MONOCYTES # (AUTO) 0.7 (0.2-0.8); MONOCYTES % 8.7 % (4.4-11.3); NEUTROPHILS # (AUTO) 7.3 (2.1-6.9); NEUTROPHILS % 85.6 % (38.7-80.0); PLATELET COUNT 139 x10e3/uL (140-360); RED BLOOD COUNT 3.59 x10e6/uL (3.6-5.1); RED CELL DISTRIBUTION WIDTH 17.2 % (11.7-14.4)
[2020-12-01] MEDS ORDERED: SODIUM CHLORIDE 0.9% 250ML 250 ML ONE (06:12)
[2020-12-01 06:32] LABS: ANION GAP 19.8 mmol/L (8-16); CALCIUM 8.1 mg/dL (8.4-10.2); CREATININE, SERUM 4.56 mg/dL (0.57-1.11); POTASSIUM 3.8 mmol/L (3.5-5.1)
[2020-12-01] MEDS: METRONIDAZOLE 750MG/NS 150ML 150 ML IV SCH ×2 (06:41→20:00)
[2020-12-01 07:23] LABS: BAND NEUTROPHILS % (MANUAL) 19 %; EOSINOPHILS % (MANUAL) 2 % (0-7); LYMPHOCYTES % (MANUAL) 5 % (19-48); MONOCYTES % (MANUAL) 7 % (3.4-9.0); NEUTROPHILS % (MANUAL) 67 % (40-74)
[2020-12-01 07:24] LABS: ANISOCYTOSIS SLIGHT; PLATELET ESTIMATE SLIGHTLY DECREASED; PLATELET MORPHOLOGY COMMENT NORMAL; POLYCHROMASIA FEW; RBC MORPHOLOGY COMMENT NORMAL
[2020-12-01] MEDS: CEFEPIME 2 GM in SODIUM CHLORIDE 0.9% 100 ML IV SCH ×2 (08:39→21:29)
[2020-12-01 10:38] LABS: INR 1.02
[2020-12-01] MEDS ORDERED: GLYCOPYRROLATE INJ 0.2 MG/ML VIAL ONE (19:28)
[2020-12-01] MEDS ORDERED: PROPOFOL IV EMULSION 10 MG/ML 20 ML VIAL ONE (19:28)
[2020-12-01] MEDS ORDERED: CEFOXITIN SOD 1 GM VIAL ONE (19:28)
[2020-12-01] MEDS ORDERED: SEVOFLURANE INHAL SOLN 250 ML PEN BTL ONE (19:28)
[2020-12-01] MEDS ORDERED: DEXAMETHASONE SOD PHOS INJ 4 MG/ML VIAL ONE (19:28)
[2020-12-01] MEDS ORDERED: NEOSTIGMINE 1 MG/ML 10ML VIAL ONE (19:28)
[2020-12-01] MEDS ORDERED: LIDOCAINE HCL 2% LOCAL INJ 5 ML SDV VIAL INJ ONE (19:28)
[2020-12-01] MEDS ORDERED: ROCURONIUM BROMIDE 10 MG/ML 5ML VIAL IV ONE (19:28)
[2020-12-01] MEDS ORDERED: ONDANSETRON HCL INJ 2MG/ML 2ML 2 MG/ML VIAL ONE (19:28)
[2020-12-01] MEDS ORDERED: POVIDONE IODINE 0.05% 0.05 % ML PO ONE (19:28)
[2020-12-01] MEDS: ONDANSETRON HCL INJ 2MG/ML 2ML 2 MG/ML VIAL IV PRN (21:08)
[2020-12-01] MEDS: MORPHINE SULFATE INJ 4 MG/ML INJ 1ML IV PRN (21:08)
[2020-12-02] VITALS (9 sets, daily range): BP systolic 132–179; BP diastolic 51–70
[2020-12-02] MEDS: SODIUM CHLORIDE 0.9% 250ML IRRIG IR SCH ×7 (00:57→20:00)
[2020-12-02] MEDS: ONDANSETRON HCL INJ 2MG/ML 2ML 2 MG/ML VIAL IV PRN (02:32)
[2020-12-02] MEDS: MORPHINE SULFATE INJ 4 MG/ML INJ 1ML IV PRN ×2 (02:32→06:28)
[2020-12-02] MEDS: METOPROLOL TARTRATE INJ 1 MG/ML VIAL IV PRN (07:16)
[2020-12-02] MEDS ORDERED: DEXTROSE 50% SYRINGE 50 ML IV ONE (08:18)
[2020-12-02] MEDS: CEFEPIME 2 GM in SODIUM CHLORIDE 0.9% 100 ML IV SCH (08:27)
[2020-12-02] MEDS ORDERED: METRONIDAZOLE 750MG/NS 150ML 150 ML IV SCH (12:00)
[2020-12-02] MEDS ORDERED: FENTANYL CITRATE/PF 100MCG/2 ML INJ ONE ×2 (13:00→13:01)
[2020-12-02] MEDS ORDERED: BUPIVACAINE HCL 0.5% INJ 30 ML VIAL INJ ONE (13:06)
[2020-12-02] MEDS: METRONIDAZOLE 500MG/NS 100ML 100 ML IV SCH (22:41)
[2020-12-03] VITALS (7 sets, daily range): BP systolic 113–199; BP diastolic 62–71
[2020-12-03] MEDS: SODIUM CHLORIDE 0.9% 250ML IRRIG IR SCH ×13 (01:09→22:36)
[2020-12-03 07:09] LABS: BASOPHILS % 0.4 % (0.0-1.0); EOSINOPHILS % 0.3 % (0.0-6.0); HEMATOCRIT 34.1 % (34.2-44.1); HEMOGLOBIN 10.3 g/dL (12.0-16.0); LYMPHOCYTES # (AUTO) 0.4 (1.0-3.2); LYMPHOCYTES % 5.1 % (18.0-39.1); MEAN CORPUSCULAR HEMOGLOBIN 31.5 pg (28-32); MEAN CORPUSCULAR HGB CONC 30.2 g/dL (31-35); MEAN CORPUSCULAR VOLUME 104.3 fL (81-99); MONOCYTES # (AUTO) 0.7 (0.2-0.8); MONOCYTES % 8.8 % (4.4-11.3); NEUTROPHILS # (AUTO) 6.5 (2.1-6.9); NEUTROPHILS % 85.1 % (38.7-80.0); PLATELET COUNT 126 x10e3/uL (140-360); RED BLOOD COUNT 3.27 x10e6/uL (3.6-5.1); RED CELL DISTRIBUTION WIDTH 16.5 % (11.7-14.4)
[2020-12-03 07:29] LABS: ANION GAP 17.9 mmol/L (8-16); CALCIUM 8.4 mg/dL (8.4-10.2); CREATININE, SERUM 4.04 mg/dL (0.57-1.11); POTASSIUM 3.9 mmol/L (3.5-5.1)
[2020-12-03 07:57] LABS: MAGNESIUM 1.9 MG/DL (1.3-2.1); PHOSPHORUS 6.2 MG/DL (2.3-4.7)
[2020-12-03] MEDS: METRONIDAZOLE 500MG/NS 100ML 100 ML IV SCH ×2 (08:43→22:36)
[2020-12-03] MEDS: ONDANSETRON HCL INJ 2MG/ML 2ML 2 MG/ML VIAL IV PRN (11:06)
[2020-12-03] MEDS: MORPHINE SULFATE INJ 4 MG/ML INJ 1ML IV PRN (11:06)
[2020-12-03] MEDS: DEXTROSE 5%/0.225% SOD CHL 1,000 ML IV SCH (11:42)
[2020-12-03] MEDS ORDERED: CLONIDINE HCL 0.2 MG/24 HR 1 EA PATCH TOP SCH (12:00)
[2020-12-03] MEDS ORDERED: SODIUM CHLORIDE 0.9% 1000ML 1,000 ML ONE (15:17)
[2020-12-03] MEDS ORDERED: HEPARIN SOD (PORCINE) 1000 UNIT/ML SDV IV PRN (16:00)
[2020-12-03] MEDS ORDERED: SODIUM CHLORIDE 0.9% 1000ML 2,000 ML IV PRN (16:00)
[2020-12-03] MEDS: CEFEPIME 1 GM in SODIUM CHLORIDE 0.9% 50ML 50 ML IV SCH (17:08)
[2020-12-04] VITALS (8 sets, daily range): BP systolic 158–195; BP diastolic 64–84
[2020-12-04] MEDS: SODIUM CHLORIDE 0.9% 250ML IRRIG IR SCH ×12 (04:00→20:00)
[2020-12-04] MEDS: MORPHINE SULFATE INJ 4 MG/ML INJ 1ML IV PRN ×3 (08:46→22:49)
[2020-12-04] MEDS: ONDANSETRON HCL INJ 2MG/ML 2ML 2 MG/ML VIAL IV PRN ×2 (08:46→14:42)
[2020-12-04] MEDS: DEXTROSE 5%/0.225% SOD CHL 1,000 ML IV SCH (09:13)
[2020-12-04] MEDS: METRONIDAZOLE 500MG/NS 100ML 100 ML IV SCH ×2 (09:13→21:00)
[2020-12-04] MEDS: CEFEPIME 1 GM in SODIUM CHLORIDE 0.9% 50ML 50 ML IV SCH (17:41)
[2020-12-05] VITALS: BP 177/72
[2020-12-05] MEDS: SODIUM CHLORIDE 0.9% 250ML IRRIG IR SCH ×6 (03:49→08:00)
[2020-12-05] MEDS: DEXTROSE 5%/0.225% SOD CHL 1,000 ML IV SCH (03:49)
[2020-12-05 07:56] VITALS: BP 176/69
[2020-12-05] MEDS: METRONIDAZOLE 500MG/NS 100ML 100 ML IV SCH ×2 (08:14→20:15)
[2020-12-05 08:17] VITALS: BP 176/69
[2020-12-05] MEDS ORDERED: DEXTROSE 50% SYRINGE 50 ML IV PRN (10:30)
[2020-12-05] MEDS: ONDANSETRON HCL INJ 2MG/ML 2ML 2 MG/ML VIAL IV PRN ×2 (10:55→15:00)
[2020-12-05] MEDS: MORPHINE SULFATE INJ 4 MG/ML INJ 1ML IV PRN ×3 (10:55→20:15)
[2020-12-05] MEDS: INSULIN LISPRO 100 UNIT/1 ML 3ML VIAL SQ SCH ×3 (11:30→20:33)
[2020-12-05] MEDS ORDERED: ACETAMINOPHEN 325 MG TAB PO ONE (11:30)
[2020-12-05 11:54] VITALS: BP 146/76
[2020-12-05 16:39] LABS: BASOPHILS # (AUTO) 0.1 (0.0-0.1); EOSINOPHILS # (AUTO) 0.5 (0.0-0.4); EOSINOPHILS % 8.2 % (0.0-6.0); HEMATOCRIT 36.9 % (34.2-44.1); HEMOGLOBIN 10.9 g/dL (12.0-16.0); LYMPHOCYTES # (AUTO) 0.7 (1.0-3.2); LYMPHOCYTES % 12.2 % (18.0-39.1); MEAN CORPUSCULAR HEMOGLOBIN 30.6 pg (28-32); MEAN CORPUSCULAR HGB CONC 29.5 g/dL (31-35); MEAN CORPUSCULAR VOLUME 103.7 fL (81-99); MONOCYTES # (AUTO) 0.7 (0.2-0.8); MONOCYTES % 11.6 % (4.4-11.3); NEUTROPHILS % 66.2 % (38.7-80.0); PLATELET COUNT 140 x10e3/uL (140-360); RED BLOOD COUNT 3.56 x10e6/uL (3.6-5.1); RED CELL DISTRIBUTION WIDTH 16.1 % (11.7-14.4)
[2020-12-05 16:47] VITALS: BP 157/77
[2020-12-05 16:58] LABS: ANION GAP 13.7 mmol/L (8-16); CALCIUM 8.9 mg/dL (8.4-10.2); CREATININE, SERUM 1.54 mg/dL (0.57-1.11); POTASSIUM 3.7 mmol/L (3.5-5.1)
[2020-12-05] MEDS: CEFEPIME 1 GM in SODIUM CHLORIDE 0.9% 50ML 50 ML IV SCH (18:43)
[2020-12-05] MEDS ORDERED: CENTRAL TPN FORMULA 1 BAG IV SCH (20:00)
[2020-12-06] MEDS: MORPHINE SULFATE INJ 4 MG/ML INJ 1ML IV PRN ×2 (02:11→15:50)
[2020-12-06] MEDS: METOPROLOL TARTRATE INJ 1 MG/ML VIAL IV PRN ×2 (04:43→20:13)
[2020-12-06] MEDS: INSULIN LISPRO 100 UNIT/1 ML 3ML VIAL SQ SCH ×4 (07:30→20:11)
[2020-12-06] MEDS: METRONIDAZOLE 500MG/NS 100ML 100 ML IV SCH ×2 (08:57→20:11)
[2020-12-06] MEDS: DEXTROSE 5%/0.225% SOD CHL 1,000 ML IV SCH ×2 (08:57→20:11)
[2020-12-06 10:23] LABS: BASOPHILS # (AUTO) 0.1 (0.0-0.1); BASOPHILS % 0.7 % (0.0-1.0); EOSINOPHILS # (AUTO) 0.6 (0.0-0.4); EOSINOPHILS % 8.6 % (0.0-6.0); HEMATOCRIT 33.9 % (34.2-44.1); HEMOGLOBIN 10.1 g/dL (12.0-16.0); LYMPHOCYTES # (AUTO) 0.7 (1.0-3.2); LYMPHOCYTES % 10.7 % (18.0-39.1); MEAN CORPUSCULAR HEMOGLOBIN 30.7 pg (28-32); MEAN CORPUSCULAR HGB CONC 29.8 g/dL (31-35); MONOCYTES # (AUTO) 0.7 (0.2-0.8); MONOCYTES % 10.3 % (4.4-11.3); NEUTROPHILS # (AUTO) 4.6 (2.1-6.9); NEUTROPHILS % 69.1 % (38.7-80.0); PLATELET COUNT 144 x10e3/uL (140-360); RED BLOOD COUNT 3.29 x10e6/uL (3.6-5.1); RED CELL DISTRIBUTION WIDTH 15.9 % (11.7-14.4)
[2020-12-06 10:47] LABS: MAGNESIUM 1.5 MG/DL (1.3-2.1); PHOSPHORUS 3.5 MG/DL (2.3-4.7)
[2020-12-06 11:06] LABS: ANION GAP 13.4 mmol/L (8-16); CALCIUM 8.4 mg/dL (8.4-10.2); CREATININE, SERUM 2.71 mg/dL (0.57-1.11); POTASSIUM 3.4 mmol/L (3.5-5.1)
[2020-12-06] MEDS: ONDANSETRON HCL INJ 2MG/ML 2ML 2 MG/ML VIAL IV PRN (15:50)
[2020-12-06] MEDS: CEFEPIME 1 GM in SODIUM CHLORIDE 0.9% 50ML 50 ML IV SCH (18:00)
[2020-12-07] MEDS: MORPHINE SULFATE INJ 4 MG/ML INJ 1ML IV PRN (00:15)
[2020-12-07] MEDS: INSULIN LISPRO 100 UNIT/1 ML 3ML VIAL SQ SCH ×3 (07:30→16:30)
[2020-12-07] MEDS: METRONIDAZOLE 500MG/NS 100ML 100 ML IV SCH (09:05)
[2020-12-07 10:04] LABS: MAGNESIUM 1.5 MG/DL (1.3-2.1); PHOSPHORUS 4.6 MG/DL (2.3-4.7)
[2020-12-07] MEDS: DEXTROSE 5%/0.225% SOD CHL 1,000 ML IV SCH (15:15)
[2020-12-08] MEDS ORDERED: MORPHINE SULFATE INJ 4 MG/ML INJ 1ML ONE (01:14)
[2020-12-08 04:00] VITALS: BP 174/71
[2020-12-08] MEDS ORDERED: TRAMADOL HCL 50 MG TAB PO PRN (09:15)
[2020-12-08] MEDS ORDERED: ACETAMINOPHEN 325 MG TAB PO SCH (09:15)
[2020-12-08] MEDS ORDERED: SODIUM CHLORIDE 0.9% 1000ML 2,000 ML ONE (10:55)
[2020-12-08] MEDS ORDERED: TRAMADOL HCL 50 MG TAB ONE (12:39)
[2020-12-08 12:54] LABS: ALANINE AMINOTRANSFERASE < 6 IU/L (0-55); ALBUMIN 2.2 g/dL (3.5-5.0); ALBUMIN/GLOBULIN RATIO 0.6 (0.8-2.0); ALKALINE PHOSPHATASE 75 IU/L (40-150); ANION GAP 13.7 mmol/L (8-16); BLOOD UREA NITROGEN 32 mg/dL (7-26); BUN/CREATININE RATIO 7 (6-25); CALCIUM 8.1 mg/dL (8.4-10.2); CARBON DIOXIDE 24 mmol/L (22-29); CHLORIDE 98 mmol/L (98-107); CREATININE, SERUM 4.56 mg/dL (0.57-1.11); EST GLOMERULAR FILTRATION RATE 9 ML/MIN (60-); GLUCOSE 121 mg/dL (74-118); MAGNESIUM 1.4 MG/DL (1.3-2.1); POTASSIUM 3.7 mmol/L (3.5-5.1); SODIUM 132 mmol/L (136-145)
[2020-12-08 12:55] LABS: BASOPHILS % 0.9 % (0.0-1.0); EOSINOPHILS % 6.2 % (0.0-6.0); HEMATOCRIT 31.9 % (34.2-44.1); HEMOGLOBIN 9.9 g/dL (12.0-16.0); LYMPHOCYTES % 10.5 % (18.0-39.1); MONOCYTES % 8.6 % (4.4-11.3); NEUTROPHILS % 73.2 % (38.7-80.0); PLATELET COUNT 154 x10e3/uL (140-360); RED BLOOD COUNT 3.19 x10e6/uL (3.6-5.1); RED CELL DISTRIBUTION WIDTH 15.7 % (11.7-14.4)
[2020-12-08 12:56] LABS: BASOPHILS # (AUTO) 0.1 (0.0-0.1); EOSINOPHILS # (AUTO) 0.4 (0.0-0.4); LYMPHOCYTES # (AUTO) 0.7 (1.0-3.2); MONOCYTES # (AUTO) 0.6 (0.2-0.8); NEUTROPHILS # (AUTO) 4.9 (2.1-6.9)
[2020-12-08] MEDS: CEFEPIME 1 GM in SODIUM CHLORIDE 0.9% 50ML 50 ML IV SCH (15:52)
[2020-12-08] MEDS ORDERED: FLAGYL500 MG PO (16:55)
== END 2020-12-08 18:56 | disposition home health service (06) | DRG 353 ==
LOC: ER 15:04 → ERHOLD 17:30 → MED/SURG2 19:39
PROVIDERS: ADMIT Internal Medicine; ATTEND Internal Medicine
PROC: 5A1D70Z Performance of Urinary Filtration, Intermittent, Less than 6 Hours Per Day (ICD-10-PCS; 2020-12-01)
PROC: 0WQF0ZZ Repair Abdominal Wall, Open Approach (ICD-10-PCS; 2020-12-02)
PROC: 5A1D70Z Performance of Urinary Filtration, Intermittent, Less than 6 Hours Per Day (ICD-10-PCS; 2020-12-03)
PROC: 02HV33Z Insertion of Infusion Device into Superior Vena Cava, Percutaneous Approach (ICD-10-PCS; principal; 2020-12-04)
PROC: B548ZZA Ultrasonography of Superior Vena Cava, Guidance (ICD-10-PCS; 2020-12-04)
PROC: 5A1D70Z Performance of Urinary Filtration, Intermittent, Less than 6 Hours Per Day (ICD-10-PCS; 2020-12-05)
PROC: 5A1D70Z Performance of Urinary Filtration, Intermittent, Less than 6 Hours Per Day (ICD-10-PCS; 2020-12-08)
DX: K43.3 Parastomal hernia with obstruction, without gangrene (principal); N18.6 End stage renal disease; U07.1 COVID-19; I13.2 Hypertensive heart and chronic kidney disease with heart failure and with stage 5 chronic kidney disease, or end stage renal disease; E11.22 Type 2 diabetes mellitus with diabetic chronic kidney disease; Z99.2 Dependence on renal dialysis; I50.9 Heart failure, unspecified; Z88.0 Allergy status to penicillin; Z91.041 Radiographic dye allergy status; Z93.3 Colostomy status; E11.21 Type 2 diabetes mellitus with diabetic nephropathy; Z88.2 Allergy status to sulfonamides; Z83.3 Family history of diabetes mellitus; E78.5 Hyperlipidemia, unspecified; J45.909 Unspecified asthma, uncomplicated; Z79.4 Long term (current) use of insulin
CPT/HCPCS: 36415; 36556; 71045; 74018; 74176; 74470; 76937; 77003; 80048; 80053; 82948; 83605; 83690; 83735; 84100; 84132; 84484; 85025; 85610; 86705; 86706; 87040; 87340; 93005; 97139; 99251; 99285; J0692; J0694; J1100; J1644; J2001; J2270; J2405; J2710; J3010; J7030; J7050; J7799; U0002